=== PATIENT | male | born 1995 | race Caucasian/White ===

== ENCOUNTER 2017-03-27 16:38 | Emergency (ER) | payer BC, OTHER ==
[2017-03-27 16:39] VITALS: BMI 32.4
[2017-03-27 16:44] VITALS: BP 153/92; PULSE 94; TEMP 98; O2SAT 96
--- NOTE | 2017-03-27 16:55 | C.PDOC ---
History Of Present Illness 21M c/o allergy sx for the last month including itchy and watery eyes, runny nose, itchy throat. he says he has tried otc meds without relief but unsure what they are. hx of DM on metformin. Time Seen by Provider: 03/27/17 16:47 Chief Complaint (Nursing): Allergic Reaction Past Medical History Vital Signs: Last Vital Signs Temp 98 F 03/27/17 16:41 Pulse 94 H 03/27/17 16:41 Resp 18 03/27/17 16:41 BP 153/92 H 03/27/17 16:41 Pulse Ox 96 03/27/17 16:41 - Medical History PMH: Hypercholesterolemia Family History: States: Unknown Family Hx - Social History Hx Tobacco Use: No Hx Alcohol Use: No Hx Substance Use: No - Immunization History Hx Tetanus Toxoid Vaccination: Yes Hx Influenza Vaccination: No Hx Pneumococcal Vaccination: No Review Of Systems Constitutional: Negative for: Fever, Weakness, Malaise Eyes: Positive for: Conjunctivae Inflammation, Redness ENT: Positive for: Nose Discharge Cardiovascular: Negative for: Chest Pain Respiratory: Negative for: Cough, Shortness of Breath Gastrointestinal: Negative for: Nausea, Vomiting Physical Exam - Physical Exam Appears: Well, Non-toxic, No Acute Distress Skin: Warm, Dry Eye(s): bilateral: PERRL, EOMI, Other (mild conj injection. mild eyelid edema.) Nose: No Epistaxis Tongue: No Swelling, No Lesions, No Erythema Lips: No Swelling Neck: Normal ROM Cardiovascular: Rhythm Regular Respiratory: No Decreased Breath Sounds, No Accessory Muscle Use, No Rales, No Rhonchi, No Wheezing Neurological/Psych: Oriented x3, Other (no focal deficits) ED Course And Treatment O2 Sat by Pulse Oximetry: 96 Medical Decision Making Medical Decision Making: disc importance of diet and monitoring blood sugar while on prednisone. Disposition - Disposition Disposition: HOME/ ROUTINE Disposition Time: 16:53 Condition: GOOD - Clinical Impression Clinical Impression: Environmental allergies
[2017-03-27 17:08] VITALS: RESP 20
== END 2017-03-27 17:07 | disposition home or self-care (01) ==
LOC: C.ER 16:38
DX: T78.49XA Other allergy, initial encounter (principal)

== ENCOUNTER 2018-07-07 14:02 | Emergency (ER) | payer OTHER ==
[2018-07-07 14:02] VITALS: BMI 32.4
[2018-07-07] MEDS ORDERED: Sodium Chloride 0.9% 1,000 ML IV ONE (14:32)
[2018-07-07] MEDS ORDERED: Iohexol 240 (50 ml) PO STA (14:32)
[2018-07-07 14:38] LABS: SQUAMOUS EPITHIAL < 1 /hpf (0-5); URINE BILIRUBIN NEGATIVE (NEGATIVE); URINE BLOOD NEGATIVE (NEGATIVE); URINE CALCIUM OXALATE CRYSTALS OCC /hpf (<OCC); URINE CLARITY Clear (Clear); URINE COLOR Yellow (YELLOW); URINE GLUCOSE (UA) 2+ mg/dL (Normal); URINE LEUKOCYTE ESTERASE TRACE Leu/uL (Negative); URINE PROTEIN 1+ mg/dL (NEGATIVE); URINE UROBILINOGEN NORMAL mg/dL (0.2-1.0)
--- NOTE | 2018-07-07 14:53 | C.PDOC ---
History Of Present Illness CC: Left lower abdominal pain Patient is a 23 year male with past medical history of DM, HTN anf HLD , who presents to the ED with left lower quadrant pain that has been ongoing for 20 days with associated symptoms of frequent bowel movement. Patient describes his abdominal pain as intermittent pressure/discomfort that elicits a bowel movement ( watery/loose stool). Patient denies any weight loss, loss of appetite, hematochezia, dysuria, flank pain, trauma or previous episodes, fever , chills, nausea or vomiting. Patient does admit to night sweats. Time Seen by Provider: 07/07/18 14:12 Chief Complaint (Nursing): Abdominal Pain History Per: Patient History/Exam Limitations: no limitations Onset/Duration Of Symptoms: Days Current Symptoms Are (Timing): Still Present Severity: Moderate Location: left lower quadrant Quality: 7/10 pressure Recent travel outside of the [place]: No Additional History Per: Patient Past Medical History Vital Signs: Last Vital Signs Temp 98.5 F 07/07/18 14:08 Pulse 99 H 07/07/18 14:08 Resp 20 07/07/18 14:08 BP 159/104 H 07/07/18 14:08 Pulse Ox 97 07/07/18 16:38 - Medical History PMH: Diabetes, HTN, Hypercholesterolemia Surgical History: No Surg Hx Family History: States: Unknown Family Hx - Social History Hx Tobacco Use: No Hx Alcohol Use: Yes (socially or occasionally) Hx Substance Use: No - Immunization History Hx Tetanus Toxoid Vaccination: Yes Hx Influenza Vaccination: No Hx Pneumococcal Vaccination: No Review Of Systems Constitutional: Positive for: Sweats. Negative for: Fever, Chills, Weakness Cardiovascular: Negative for: Chest Pain, Palpitations Respiratory: Negative for: Shortness of Breath, SOB with Excertion Gastrointestinal: Positive for: Abdominal Pain, Diarrhea. Negative for: Nausea , Vomiting, Constipation, Melena, Hematochezia, Hematemesis, Rectal Pain Genitourinary: Negative for: Dysuria, Frequency, Hematuria, Penile Discharge Skin: Negative for: Jaundice Neurological: Negative for: Dizziness Physical Exam - Physical Exam Appears: Well Head: Atraumatic, Normacephalic Eye(s): bilateral: EOMI Cardiovascular: Rhythm Regular, No Rhythm Irregular, No Friction Rub, No Murmur , No Other Respiratory: Normal Breath Sounds, No Decreased Breath Sounds, No Accessory Muscle Use, No Wheezing, No Plerual Rub Gastrointestinal/Abdominal: Normal Exam, Soft, Other (Hypoactive BS) Back: No CVA Tenderness Neurological/Psych: Oriented x3, Normal Speech ED Course And Treatment - Laboratory Results Result Diagrams: 07/07/18 14:53 07/07/18 14:53 O2 Sat by Pulse Oximetry: 97 Medical Decision Making Medical Decision Making: Abdominal Obstructive series: No infiltrate. Stool retention. No evidence of mechanical bowel obstruction. CT Abdomen/Pelvis with PO contrast: No interval urolithiasis. Prior distal right ureteral calculus no longer seen. Prior right ureteral dilatation resolved. Possible left enteritis. No obstruction Disposition - Disposition Disposition: HOME/ ROUTINE Condition: STABLE Additional Instructions: Please discharge patient home Please start the new medications for 7 days: 1. Flagyl 500mg PO every 8 hours, please take with yogurt or a probiotic. Please avoid any alcoholic beverage during this course of antibiotics/ for 2 weeks 2. Cipro 500mg PO every 12 hours, please take with yogurt or a probiotic. Please avoid any alcoholic beverage during this course of antibiotics/ for 2 weeks 3. Please take Dulcolax 5mg PO once daily till he has a bowel movement 4. Benefiber 1 packet once daily. 5. Please increase your fiber and water intake daily Please follow up with your PMD within 1-5 days of discharge Prescriptions: Bisacodyl [Dulcolax] 5 mg PO DAILY 10 Days #10 tablet. Ciprofloxacin [Cipro] 500 mg PO Q12H 7 Days #14 tab Metronidazole [Flagyl] 500 mg PO Q8H 7 Days #21 tablet Wheat Dextrin [Benefiber] 144 gm PO DAILY #10 powder Instructions: Viral Gastroenteritis Forms: [facility] ([place]), General Discharge Instructions, Gen Discharge Inst [facility] - Clinical Impression Clinical Impression: Enteritis, Abdominal pain
[2018-07-07] MEDS ORDERED: Iohexol 240 (50 ml) ONE (14:56)
[2018-07-07 15:00] LABS: BASO # 0.1 K/uL (0.0-0.2); BASO % 0.6 % (0.0-2.0); EOS # 0.1 K/uL (0.0-0.7); EOS % 0.9 % (0.0-4.0); LYMPH # 5.4 K/uL (1.0-4.3); LYMPH % 41.8 % (20.0-40.0); MEAN CELL VOLUME 81.4 fL (80.0-94.0); MEAN CORPUSCULAR HEMOGLOBIN 27.9 pg (27.0-31.0); MEAN CORPUSCULAR HGB CONC 34.3 g/dL (33.0-37.0); MONO # 1.1 K/uL (0.0-0.8); MONO % 8.6 % (0.0-10.0); NEUT # 6.3 K/uL (1.8-7.0); NEUT % 48.1 % (50.0-75.0); NRBC % 0.2 % (0.0-2.0); RBC 5.72 Mil/uL (4.40-5.90); RED CELL DISTRIBUTION WIDTH 13.4 % (11.5-14.5)
[2018-07-07 15:10] LABS: ALB/GLOB RATIO 1.5 (1.0-2.1); ALBUMIN 4.7 g/dL (3.5-5.0); ALT/SGPT 44 U/L (21-72); AST/SGOT 30 U/L (17-59); BLOOD UREA NITROGEN 11 mg/dL (9-20); CALCIUM 10.1 mg/dl (8.6-10.4); GFR AFRICAN-AMERICAN > 60; GFR NON-AFRICAN AMERICAN > 60; LIPASE 108 U/L (23-300)
--- NOTE | 2018-07-07 16:06 | RAD ---
Date of service: 07/07/2018 PROCEDURE: Radiographs of the chest and abdomen (obstructive series) HISTORY: abd pain COMPARISON: No prior. TECHNIQUE: AP radiograph of the chest, with upright and supine radiographs of the abdomen. FINDINGS: CHEST: Lungs: Clear. Cardiovascular: Normal size heart. No pulmonary vascular congestion. Pleura: No pleural fluid. No pneumothorax. Other findings: None. ABDOMEN AND PELVIS: Bowel: Stool retention. No evidence of mechanical obstruction. Free air: None. Bones: Unremarkable. Other findings: None. IMPRESSION: No infiltrate. Stool retention. No evidence of mechanical bowel obstruction.
--- NOTE | 2018-07-07 16:48 | CT ---
Date of service: 07/07/2018 PROCEDURE: CT Abdomen and Pelvis with contrast HISTORY: llq pain COMPARISON: 11/19/2013 TECHNIQUE: Contrast dose: Oral contrast administered. No IV contrast administered. Radiation dose: Total exam DLP = 921 mGy-cm. This CT exam was performed using one or more of the following dose reduction techniques: Automated exposure control, adjustment of the mA and/or kV according to patient size, and/or use of iterative reconstruction technique. FINDINGS: LOWER THORAX: Unremarkable. LIVER: Hepatic steatosis re- suggested -similar-appearing. No gross lesion or ductal dilatation. GALLBLADDER AND BILE DUCTS: Unremarkable. PANCREAS: Unremarkable. No gross lesion or ductal dilatation. SPLEEN: Unremarkable. ADRENALS: Unremarkable. No mass. KIDNEYS AND URETERS: Unremarkable. No hydronephrosis. No solid mass. Prior right hydroureter and prior right ureteral stone no longer seen. No interval left hydronephrosis or interval left urolithiasis noted VASCULATURE: Unremarkable. No aortic aneurysm. BOWEL: No obstruction. No gross mural thickening. Some left-sided small bowel loop mild mural thickening perceived- nonspecific and enteritis is 1 consideration. No significant appearing inflammatory changes in the surrounding fat APPENDIX: Normal appendix. PERITONEUM: Unremarkable. No free fluid. No free air. LYMPH NODES: Unremarkable. No enlarged lymph nodes. BLADDER: Unremarkable. REPRODUCTIVE: Unremarkable. BONES: No acute fracture. OTHER FINDINGS: None. IMPRESSION: No interval urolithiasis. Prior distal right ureteral calculus no longer seen. Prior right ureteral dilatation resolved Possible left enteritis. No obstruction.
[2018-07-07 17:21] VITALS: BP 150/89; PULSE 78; RESP 18; TEMP 98; O2SAT 99
== END 2018-07-07 17:20 | disposition home or self-care (01) ==
LOC: C.ER 14:02
DX: K52.9 Noninfective gastroenteritis and colitis, unspecified (principal); R10.32 Left lower quadrant pain
CPT/HCPCS: 74022; 74176; 80053; 81001; 83690; 85025; 96360; 99285; J7030; Q9966